=== PATIENT | male | born 1945 | race Caucasian/White ===

== ENCOUNTER 2019-09-12 16:07 | Inpatient (IN) ==
[2019-09-12] MEDS ORDERED: ZOFRAN IV ONE (17:40)
[2019-09-12] MEDS ORDERED: NS 1,000 ML IV ONE ×2 (17:40→17:41)
[2019-09-12] MEDS ORDERED: MORPHINE IV ONE (17:40)
[2019-09-12] MEDS ORDERED: ROCEPHIN 1 GM in NS 50 ML IV ONE (17:41)
[2019-09-12 18:18] LABS: BASO# 0.01 X1000 (0.0-0.2); BASO% 0.1 % (0.0-0.8); EOS# 0.04 X1000 (0.0-0.7); EOS% 0.6 % (0.0-10.0); HEMATOCRIT 42.1 % (42.0-52.0); HEMOGLOBIN 13.9 g/dL (14.0-18.0); LYMPH# 2.05 X1000 (1.2-3.4); LYMPH% 28.5 % (20.5-51.1); MCH 28.9 PG (27-31); MCV 87.5 FL (81-99); MONO# 0.74 X1000 (0.11-0.59); MONO% 10.3 % (1.7-9.3); MPV 13.3 FL (7.4-10.4); NEUT# 4.35 X1000 (1.4-6.5); NEUT% 60.5 % (42.2-75.2); PLT 136 X1000 (130-400); RBC 4.81 XMIL (4.7-6.1); WBC 7.19 X1000 (4.8-10.8)
[2019-09-12 18:27] LABS: INR 1.05; PROTIME 13.8 Seconds (11.0-16.0); PTT 24.8 Seconds (22.3-41.8)
--- NOTE | 2019-09-12 18:37 | PROVIDER DOCUMENTATION ---
This chart was entered by Mayra Pena Scribe, acting as scribe for Burak Mckay MD. HPI-General Adult - General Source: RN/MD, EMS - History of Present Illness -Gen Adult Nature of Presenting Problems: Patient is a 74 y/o male presenting to the ED today c/o AMS. Patient was brought over from [facility] at the request of his daughter who felt pat dannynt was having some altered mental status because he had been driving his motorized wheelchair into [place]. Patient has a history of a prior spinal cord injury and is wheelchair bound with cognitive impairment. When asked about pain, patient c/o discomfort in his right lower extremity and back. Patient provides limited information on exam. Denies all other signs/symptoms. Associated Symptoms: reports: other (altered mental status) Similar Symptoms Previously?: No Recently seen or treated by another doctor?: No <Burak Mckay - Last Filed: 09/12/19 18:37> <Dontae Wall - Last Filed: 09/12/19 23:01> - General Chief Complaint: General Adult Stated Complaint: general illness Time Seen by Provider: 09/12/19 17:26 Allergies/Adverse Reactions: Patient Allergies Allergy/AdvReac Type Severity Reaction Status Date / Time No Known Allergies Allergy Verified 09/12/19 17:38 Home Medications: Home Medication List Medication Instructions Recorded Confirmed Last Taken Type Aspirin 1 tab PO DAILY 09/12/19 09/12/19 Unknown History Atenolol 1 tab PO HS 09/12/19 09/12/19 Unknown History CefDINIR [Omnicef] 1 tab PO BID 09/12/19 09/12/19 Unknown History Meclizine HCl 1 tab PO HS 09/12/19 09/12/19 Unknown History Omeprazole 1 tab PO DAILY 09/12/19 09/12/19 Unknown History Ropinirole [Requip] 1 tab PO HS 09/12/19 09/12/19 Unknown History Simvastatin 1 tab PO HS 09/12/19 09/12/19 Unknown History Review of Systems - Adult - REVIEW OF SYSTEMS - ADULT ROS:: limited per condition Constitutional: denies: chills, fever Eyes: reports: no symptoms reported Ears, Nose, Mouth & Throat: reports: no symptoms reported Cardiovascular: denies: chest pain Respiratory: denies: cough, shortness of breath Gastrointestinal: denies: abdominal pain, diarrhea, nausea, vomiting Genitourinary: reports: no symptoms reported Musculoskeletal: reports: back pain, other (right lower extremity pain) Integumentary: reports: no symptoms reported Neurological: reports: no symptoms reported Psychiatric: reports: no symptoms reported Endocrine: reports: no symptoms reported Hematologic/Lymphatic: reports: no symptoms reported Allergic/Immunologic: reports: no symptoms reported All Other Systems: Reviewed and Negative <Burak Mckay - Last Filed: 09/12/19 18:37> Past History - Adult - PAST MEDICAL HISTORY-ADULT Review of Records: reports: Old Records Reviewed, Nursing Assessment Review, Medications Reviewed, Social history reviewed & non-contributory. <Burak Mckay - Last Filed: 09/12/19 18:37> Physical Exam-General - PHYSICAL EXAM-ADULT Initial Vital Signs Reviewed: Yes - CONSTITUTIONAL General Appearance: alert, no apparent distress, other (cognitive impairment at baseline) - EYES Eyes: PERRL/EOMI, pink conjunctivae - HEAD, EARS, NOSE, MOUTH & THROAT HENMT: normocephalic/atraumatic, moist mucous membranes - NECK Neck: full range of motion, normal inspection - RESPIRATORY Respiratory: lungs clear, normal breath sounds, no respiratory distress, no accessory muscle use, increased rate - CARDIOVASCULAR Cardiovascular: regular rate, rhythm - GASTROINTESTINAL (ABDOMEN) Abdominal Exam: non tender, soft - LYMPHATIC Lymphatic: no adenopathy - MUSCULOSKELETAL Back Exam: normal inspection Extremity: normal range of motion, normal gait, normal inspection, pedal edema (1+) - SKIN Integumentary: normal color, normal turgor, diaphoresis - NEUROLOGIC Neurologic: other (at baseline) - PSYCHIATRIC Psych/Mental Status: normal mood/affect, normal thought content, normal thought process <Burak Mckay - Last Filed: 09/12/19 18:37> Progress - PLAN OF CARE/RESULTS Progress/Plan/Lab Results: Vital Signs - 8 hr 09/12/19 17:21 Temperature 98.6 F Pulse Rate 61 Respiratory Rate 24 Blood Pressure 201/71 O2 Sat by Pulse Oximetry 96 Result Diagrams: 09/12/19 17:56 - REASSESSMENT Reassessment #1 Time Reassessed: 18:36 Status: improving (Given IVF, small dose of morphine/zofran given as patient seems to be in pain.) - EKG 1 Time of EKG reading by physician:: 18:37 EKG Read and Signed by:: Burak Mckay EKG Interpretation (*Must complete 3 of following elements*): Abnormal Rate: 62 Rhythm: Junctional rhythm Rio: normal QRS: other (early transition) ST Wave: non-specific ST changes - CHANGE OF SHIFT REPORT (ED Provider) 1 Report Given and Care Transferred to:: [facility] Time of Transfer: 19:00 Items Pending: Labs, XRAY Results <Burak Mckay - Last Filed: 09/12/19 18:37> - PLAN OF CARE/RESULTS Progress/Plan/Lab Results: Vital Signs - 8 hr 09/12/19 17:21 09/12/19 19:15 09/12/19 20:01 Temperature 98.6 F Pulse Rate 61 69 75 Respiratory Rate 24 20 20 Blood Pressure 201/71 192/72 193/64 O2 Sat by Pulse Oximetry 96 97 96 09/12/19 21:15 Temperature Pulse Rate 76 Respiratory Rate 18 Blood Pressure 208/115 O2 Sat by Pulse Oximetry 94 L 09/12/19 18:27 Influenza Screen - Final Nasopharyngeal Laboratory Results - last 24 hr 09/12/19 09/12/19 09/12/19 17:56 17:56 17:56 WBC 7.19 RBC 4.81 Hgb 13.9 L Hct 42.1 MCV 87.5 MCH 28.9 MCHC 33.0 RDW Std Deviation 14.0 Plt Count 136 MPV 13.3 H Immature Gran % (Auto) 0.0 Neut % (Auto) 60.5 Lymph % (Auto) 28.5 Morrison % (Auto) 10.3 H Eos % (Auto) 0.6 Baso % (Auto) 0.1 Immature Gran # (Auto) 0.00 Neut # (Auto) 4.35 Lymph # (Auto) 2.05 Morrison # (Auto) 0.74 H Eos # (Auto) 0.04 Baso # (Auto) 0.01 PT 13.8 INR 1.05 PTT (Actin FS) 24.8 Sodium 148 H Potassium 3.5 Chloride 107 Carbon Dioxide 24 L Anion Gap 17 BUN 16 Creatinine 0.6 L Estimated GFR/1.73 m2 > 60 BUN/Creatinine Ratio 27 Glucose 109 H Calculated Osmolality 296 Calcium 8.9 Magnesium 1.7 Total Bilirubin 0.74 AST 23 ALT 23 Alkaline Phosphatase 84 Creatine Kinase 165 Troponin T High Sens Jko-H-Fhnznakdxib Pept Total Protein 6.4 Albumin 4.1 Globulin 2.3 Albumin/Globulin Ratio 1.8 Plasma Lactate Urine Source Urine Color Urine Turbidity Urine pH Ur Specific [place] Urine Protein Ur Glucose (Stick) Ur Ketones (Stick) Urine Blood Urine Nitrite Urine Bilirubin Urobilinogen Dipstick Urine Leukocytes Urine WBC (Auto) Urine RBC (Auto) U Epithel Cells (Auto) Urine Bacteria (Auto) Urine Crystals Small Round Cells Urine Casts Urine Yeast-like Cells 09/12/19 09/12/19 09/12/19 17:56 17:56 17:56 WBC RBC Hgb Hct MCV MCH MCHC RDW Std Deviation Plt Count MPV Immature Gran % (Auto) Neut % (Auto) Lymph % (Auto) Morrison % (Auto) Eos % (Auto) Baso % (Auto) Immature Gran # (Auto) Neut # (Auto) Lymph # (Auto) Morrison # (Auto) Eos # (Auto) Baso # (Auto) PT INR PTT (Actin FS) Sodium Potassium Chloride Carbon Dioxide Anion Gap BUN Creatinine Estimated GFR/1.73 m2 BUN/Creatinine Ratio Glucose Calculated Osmolality Calcium Magnesium Total Bilirubin AST ALT Alkaline Phosphatase Creatine Kinase Troponin T High Sens 32 H Anl-A-Gxwmmmruovl Pept 1137 H Total Protein Albumin Globulin Albumin/Globulin Ratio Plasma Lactate 1.0 Urine Source Urine Color Urine Turbidity Urine pH Ur Specific [place] Urine Protein Ur Glucose (Stick) Ur Ketones (Stick) Urine Blood Urine Nitrite Urine Bilirubin Urobilinogen Dipstick Urine Leukocytes Urine WBC (Auto) Urine RBC (Auto) U Epithel Cells (Auto) Urine Bacteria (Auto) Urine Crystals Small Round Cells Urine Casts Urine Yeast-like Cells 09/12/19 09/12/19 19:20 21:45 WBC RBC Hgb Hct MCV MCH MCHC RDW Std Deviation Plt Count MPV Immature Gran % (Auto) Neut % (Auto) Lymph % (Auto) Morrison % (Auto) Eos % (Auto) Baso % (Auto) Immature Gran # (Auto) Neut # (Auto) Lymph # (Auto) Morrison # (Auto) Eos # (Auto) Baso # (Auto) PT INR PTT (Actin FS) Sodium Potassium Chloride Carbon Dioxide Anion Gap BUN Creatinine Estimated GFR/1.73 m2 BUN/Creatinine Ratio Glucose Calculated Osmolality Calcium Magnesium Total Bilirubin AST ALT Alkaline Phosphatase Creatine Kinase Troponin T High Sens 35 H Wob-Y-Ggxmumfzzwt Pept Total Protein Albumin Globulin Albumin/Globulin Ratio Plasma Lactate Urine Source CATH Urine Color YELLOW Urine Turbidity HAZY Urine pH 6.5 Ur Specific [place] 1.034 Urine Protein 300 A Ur Glucose (Stick) NEGATIVE Ur Ketones (Stick) 40 A Urine Blood LARGE A Urine Nitrite NEGATIVE Urine Bilirubin NEGATIVE Urobilinogen Dipstick 2 A Urine Leukocytes NEGATIVE Urine WBC (Auto) 10-20 A Urine RBC (Auto) TNTC A U Epithel Cells (Auto) <10 Urine Bacteria (Auto) NEGATIVE Urine Crystals NONE SEEN Small Round Cells Not Reportable Urine Casts Not Reportable Urine Yeast-like Cells Not Reportable Orders Category Date Time Status Cardiac Monitoring DIRECTED Care 09/12/19 17:39 Active IV Insertion ORDERED Care 09/12/19 17:39 Completed Nursing- Obtain EKG once Care 09/12/19 17:41 Active CHEST-1 VIEW [RAD] Stat Exams 09/12/19 17:[address] HEAD W/O CONTRAST [CT] Stat Exams 09/12/19 21:[address] RENAL STONE SEARCH [CT] Stat Exams 09/12/19 17:40 Completed BLOOD CULTURE [BLDCUL] Stat Lab 09/12/19 17:56 Results CBC WITH DIFF [HEME] Stat Lab 09/12/19 17:56 Completed CK PROFILE [SP CHEM] Stat Lab 09/12/19 17:56 Completed COMPREHENSIVE METABOLIC PANEL [CHEM] Stat Lab 09/12/19 17:56 Completed INFLUENZA SCREEN A/B Stat Lab 09/12/19 18:27 Completed LACTATE, PLASMA [CHEM] Lab 09/12/19 20:45 Uncollected LACTATE, PLASMA [CHEM] Lab 09/12/19 23:45 Uncollected LACTATE, PLASMA [CHEM] Q3H Lab 09/12/19 17:56 Completed MAGNESIUM [CHEM] Stat Lab 09/12/19 17:56 Completed PRO B-NATRIURETIC PEPTIDE Stat Lab 09/12/19 17:56 Completed PROTIME WITH INR [COAG] Stat Lab 09/12/19 17:56 Completed PTT [COAG] Stat Lab 09/12/19 17:56 Completed TROPONIN T HIGH SENSITIVITY Stat Lab 09/12/19 17:56 Completed TROPONIN T HIGH SENSITIVITY Stat Lab 09/12/19 21:45 Completed URINALYSIS W/POSS RFLX CULT [URINALYSIS] Stat Lab 09/12/19 19:20 Completed URINE CULTURE [RM] Routine Lab 09/12/19 19:20 Received URINE MANUAL MICROSCOPIC [URINALYSIS] Stat Lab 09/12/19 19:20 Completed 0.9% Sodium Chloride Inj [Ns] 1,000 ml Med 09/12/19 17:40 Discontinued IV 999 mls/hr 0.9% Sodium Chloride Inj [Ns] 1,000 ml Med 09/12/19 17:41 Discontinued IV 999 mls/hr CefTRIAXONE [Rocephin] 1 gm Med 09/12/19 17:41 Discontinued 0.9% Sodium Chloride Inj [Ns] 50 ml IV NOW Furosemide [Lasix] Med 09/12/19 21:15 Discontinued 20 mg IV NOW ONE Morphine Med 09/12/19 17:40 Discontinued 2 mg IV NOW ONE Ondansetron [Zofran] Med 09/12/19 17:40 Discontinued 4 mg IV NOW ONE Oxygen Device Stat Oth 09/12/19 17:39 Active EKG [EKG] Stat Ther 09/12/19 17:41 Ordered Result Diagrams: 09/12/19 17:56 09/12/19 17:56 - CONSULTS/PCP/HOSPITALIST Notification #1 *Consult/PCP/Hospitalist*: Dr Marcus Time Discussed: 22:57 Consult Disposition: Will see in ED, Admit <Dontae Wall - Last Filed: 09/12/19 23:01> Departure - Departure Certified Medical Emergency: Emergent - Critical Care Note This patient required my direct & personal management of CC.: No <Burak Mckay - Last Filed: 09/12/19 18:37> - Departure Date of Disposition Decision: 09/12/19 Time of Disposition Decision: 22:57 - Critical Care Note This patient required my direct & personal management of CC.: No <Dontae Wall - Last Filed: 09/12/19 23:01> - Departure DIAGNOSIS: Hypoxia, CHF (congestive heart failure), Kidney stone, Hematuria Disposition: ADMITTED INPATIENT 09 Condition: Fair Attestation - Physician/ RAE Attestation Patient care was provided by Advanced Practice Provider:: No The physician spent face to face time with patient:: Yes Advanced Practice Provider documentation review:: Supervising physician onsite and consulted in the evaluation and care of this patient. The physician did have a face to face encounter with the patient. <Burak Mckay - Last Filed: 09/12/19 18:37> This chart was documented by the indicated scribe, (Mayra Pena, [place]) and accurately reflects the services I performed and decisions made by me, Burak Mckay MD, as attested by the provider's signature.
[2019-09-12 18:41] LABS: AGAP 17; ALB/GLOB RATIO 1.8; ALBUMIN 4.1 g/dL (3.5-5.0); ALKALINE PHOSPHATASE 84 U/L (32-122); BUN 16 mg/dL (8-22); CALCIUM 8.9 mg/dL (8.8-10.2); CHLORIDE 107 mmol/L (98-107); CK PROFILE 165 U/L (24-204); COSMO 296; CREATININE 0.6 mg/dL (0.7-1.2); ESTIMATED GFR > 60; GLUCOSE 109 mg/dL (70-104); GOT 23 U/L (10-34); GPT 23 U/L (10-44); MAGNESIUM 1.7 mg/dL (1.5-2.7); POTASSIUM 3.5 mmol/L (3.5-5.1); SODIUM 148 mmol/L (136-145); TCO2 24 mmol/L (25-35); TOTAL BILIRUBIN 0.74 mg/dL (0.20-1.00); TOTAL PROTEIN 6.4 g/dL (6.3-8.3)
--- NOTE | 2019-09-12 18:50 | Diag Imaging Result Doc PS360 ---
EXAM: CT RENAL STONE SEARCH INDICATION: back pain, fever TECHNIQUE: This exam was performed using automated exposure control, adjustment of mA or kV according to patient size, and/or use of iterative reconstruction technique. COMPARISON: None. FINDINGS: The gallbladder is not identified. There has probably been a prior cholecystectomy. The liver, spleen, pancreas, and adrenal glands are unremarkable. There are multiple renal cysts bilaterally, more prominent on the right. There are several bulky nonobstructing intrarenal stones on the right. One stone at the lower pole the right kidney measures up to 9.8 mm axially. There is mild prominence of the renal collecting system at the lower pole on the right but this also may represent a parapelvic cysts. There is no dilatation of the upper collecting system on the right. There is no ureteral dilatation and no ureteral stones are identified. However, there is a 3.6 mm stone that appears to be in the lumen of the urinary bladder on the right near the right UVJ. It is unknown if this recently passed. Please correlate clinically. There appears to be a tiny anterior renal diverticulum on the right. Urinary bladder is unremarkable, otherwise. The appendix is normal. No bowel wall thickening or bowel obstruction is identified. The remainder of the GI tract is grossly unremarkable. No focal inflammatory changes, free abdominal gas, or free fluid is identified. There is no evidence of acute osseous abnormality. IMPRESSION: 1.Multiple large renal cysts. 2.Bulky nonobstructing intrarenal stones on the right and possible mild dilation of the lower right renal collecting system versus parapelvic cysts. No ureteral dilatation or ureteral stones are identified. 3.Tiny stone seen in the urinary bladder lumen near the right UVJ. It is unknown how recently this passed. 4.Other incidental/nonacute findings detailed above. Electronically signed by Fercho Sal 09/12/2019 6:47 PM
--- NOTE | 2019-09-12 18:55 | Diag Imaging Result Doc PS360 ---
EXAM: CHEST-1 VIEW INDICATION: fever TECHNIQUE: One view COMPARISON: None. FINDINGS: The lungs are grossly clear. There is no discrete pleural fluid collection or pneumothorax. The cardiomediastinal silhouette and central vasculature are grossly unremarkable. IMPRESSION: No evidence of acute pathology by plain radiograph. Electronically signed by Fercho Sal 09/12/2019 6:53 PM
[2019-09-12 19:31] LABS: URINE SOURCE CATH
[2019-09-12 19:33] LABS: BILIRUBIN URINE NEGATIVE (NEGATIVE); BLOOD URINE LARGE (NEGATIVE); COLOR YELLOW; GLUCOSE URINE NEGATIVE (NEGATIVE); KETONE URINE 40 mg/dL (NEGATIVE); LEUKOCYTES URINE NEGATIVE (NEGATIVE); NITRITE URINE NEGATIVE (NEGATIVE); PH URINE 6.5; PROTEIN URINE 300 mg/dL (NEGATIVE); SP GRAVITY URINE 1.034; TURBIDITY URINE HAZY (CLEAR); UROBILINOGEN URINE 2 mg/dL (NORMAL)
[2019-09-12 19:36] LABS: UR EPITHELIAL CELLS <10 /HPF (<10); URINE BACTERIA NEGATIVE /HPF; URINE RBC TNTC /HPF (<10)
[2019-09-12 19:53] LABS: URINE CRYSTALS NONE SEEN
[2019-09-12] MEDS ORDERED: LASIX IV ONE (21:15)
[2019-09-13] MEDS ORDERED: D5 1/2 NS 1,000 ML IV ONE (02:14)
[2019-09-13] MEDS ORDERED: ZOFRAN IV PRN (02:20)
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
[2019-09-13] MEDS: TYLENOL PO PRN (05:53)
--- NOTE | 2019-09-13 07:20 | Diag Imaging Result Doc PS360 ---
EXAM: CT HEAD W/O CONTRAST INDICATION: altered mental status TECHNIQUE: This exam was performed using automated exposure control, adjustment of mA or kV according to patient size, and/or use of iterative reconstruction technique. COMPARISON: None. FINDINGS: There is patchy low attenuation in the periventricular and subcortical white matter suggesting moderate microangiopathy. There is no definite acute infarct given the limited sensitivity of CT versus MRI. There is no discrete intracranial mass, mass effect, or intracranial hemorrhage. The surrounding soft tissues and bony structures are essentially unremarkable. IMPRESSION: Chronic appearing white matter changes but no definite acute intracranial pathology. Electronically signed by Fercho Sal 09/13/2019 7:17 AM
--- NOTE | 2019-09-13 07:30 | Diag Imaging Result Doc PS360 ---
EXAM: CT ANGIOGRM PULMONARY ARTERIES INDICATION: chest pain TECHNIQUE: This exam was performed using automated exposure control, adjustment of mA or kV according to patient size, and/or use of iterative reconstruction technique. Thin section axial images and 3-D MIPS were obtained. COMPARISON: None. FINDINGS: There is excessive respiratory motion artifact, especially at the mid and lower lung zones, which may decrease sensitivity for detecting small pulmonary emboli. However, there is no discrete filling defect to indicate pulmonary embolism as imaged. There is mild to moderate aortic atherosclerotic disease. There is subaneurysmal ectasia of the ascending aortic arch measuring up to 3.8 cm in diameter. There is no evidence of thoracic aortic dissection. There is no cardiomegaly. There is no evidence of significant mediastinal or hilar lymphadenopathy. There is at least moderate pulmonary emphysema with an apical predominance. There is mild subsegmental atelectasis at the lung bases. There is no pleural fluid collection or pneumothorax. Limited views of the upper abdomen reveal multiple bilateral renal cysts. There are a few old healed rib fractures on the left. There is no evidence of acute osseous abnormality. IMPRESSION: 1.Pulmonary emphysema and mild subsegmental atelectasis at the lung bases. 2.No evidence of pulmonary embolism. 3.Subaneurysmal ectasia of the ascending aortic arch. Electronically signed by Fercho Sal 09/13/2019 7:27 AM
--- NOTE | 2019-09-13 07:43 | EKG Report ---
Test Performed on : 09/12/2019 6:36:38 PM Test Reason : fever Blood Pressure : / mmHG Vent. Rate : 062 BPM Atrial Rate : 069 BPM P-R Int : 000 ms QRS Dur : 088 ms QT Int : 470 ms P-R-T Axes : 000 033 037 degrees QTc Int : 477 ms Junctional rhythm. Nonspecific ST and T wave abnormality Prolonged QT Abnormal ECG No previous ECGs available Unconfirmed Result
[2019-09-13] MEDS: PRILOSEC PO SCH (11:23)
--- NOTE | 2019-09-13 12:54 | CONSULTATION ---
DATE OF CONSULTATION: 09/13/2019 CHIEF COMPLAINT: Altered mental status with bilateral urolithiasis. HISTORY OF PRESENT ILLNESS: Mr. Zimmerman is a 74-year-old who presents in consultation regarding bilateral renal cysts with bilateral kidney stones. The patient was brought into the emergency room due to altered mental status from his facility. 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 He currently lives at [facility], where he has been acting abnormally recently, trying to fall out of his wheelchair and was having difficulty responding to questions. He was brought into the hospital for evaluation. A CT scan on the abdomen was performed which showed bilateral renal cysts with large stone burden within the right kidney with a larger renal cyst present. The patient also seems to have passed a recent right ureteral stone as it was present within the bladder with minimal hydronephrosis. The patient is relatively nonverbal, but answers yes and no questions. He describes bilateral flank pain. Denies any suprapubic pain, dysuria, hematuria, urgency, or frequency. He denies seeing a urologist previously. PAST MEDICAL HISTORY: 1. Brown-Sequard syndrome with paraplegia. 2. Gastroesophageal reflux disease. 3. Restless legs disease. 4. Dyslipidemia. 5. History of deep vein thrombosis. PAST SURGICAL HISTORY: Denies. ALLERGIES: No known drug allergies. MEDICATIONS: 1. Aspirin 81 mg. 2. Atenolol 25 mg daily. 3. Meclizine 25 mg daily. 4. Prilosec 20 mg daily. 5. Omnicef 300 mg b.i.d. 6. Simvastatin 20 mg at bedtime. FAMILY HISTORY: Denies family history of malignancy. SOCIAL HISTORY: Former smoker who quit about 25 years ago. Denies alcohol or illicit drug use. REVIEW OF SYSTEMS: Difficult to obtain due to the patient's underlying condition. PHYSICAL EXAMINATION: Vital Signs: Temperature 98.6, heart rate 52, blood pressure 200/111, oxygen saturation 94% on room air. General: No acute distress. Resting comfortably in bed. Alert and oriented x3. Respiratory: Good respiratory effort without audible wheezing or rales. HEENT: Normocephalic, atraumatic. Pupils equal, round, reactive to light. Neck: Trachea midline, with no palpable masses Cardiovascular: Regular rate and rhythm. Abdomen: Soft, nontender, nondistended. No palpable masses. : No suprapubic tenderness. No CVA tenderness. A condom catheter in place draining clear yellow urine. Normal phallus with orthotopic meatus. Bilateral testicles palpated without asymmetry. Musculoskeletal: Decreased movement of lower extremities. Minimal upper extremity movement. Skin: No obvious skin lesions or rashes. LABORATORY DATA: White blood cell count 7.2, hemoglobin 13.9, hematocrit 42.1, platelets 136,000. Sodium 148, potassium 3.5, chloride 107, bicarb 24, BUN 16, creatinine 0.6, glucose 109. Urinalysis shows 300 of protein, large amount of blood with ahm-smueacdn-me-count RBCs with negative bacteria. IMAGING: CT abdomen and pelvis images reviewed, which shows large bilateral renal cysts with largest cyst burden in the right kidney. There are multiple stones seen within the right kidney itself. There is noted to be hydronephrosis with a calcification seen within the bladder itself, likely correlating to possible recently passed stone. This measures approximately 3.6 mm and appears to be at the base of the bladder inside the bladder itself. ASSESSMENT AND PLAN: Mr. Zimmerman is a 74-year-old who presents in consultation regarding bilateral renal cysts and bilateral stones. The patient has a large amount of cyst in the right kidney as well as multiple stones within the kidney itself. There does appear to be a recently passed stone present in the bladder itself. The patient is currently complaining of bilateral back pain, uncertain of the acuteness of this. He says it is new onset. However, per records it seems like he has had a long history of back pain. The patient's kidney function was normal. Patient did have a large amount of blood in his urine on urinalysis. No evidence of tachycardia or signs of infection. We will continue to monitor clinically. We will re-evaluate. If he continues to have pain, may have to consider cystoscopy and treatment of stone within the bladder. However, I think the chance of passing his stone is very high due to this location, almost in the bladder itself. We will continue to monitor from a urologic standpoint. Please call with questions or concerns. cc: MD JAYE Baltazar
--- NOTE | 2019-09-13 19:08 | ECHO REPORT ---
ORDER DATE: 09/13/2019 MEASUREMENTS: Septal thickness 1.1, left ventricular internal diameter in diastole 4.7, posterior wall thickness 1.1, left ventricular internal diameter in systole 3.0. SUMMARY: 1. Technically difficult study due to limited acoustic window quality. 2. Very mild sclerotic changes of aortic valve demonstrated with adequate aortic valve opening evident. The peak gradient across the aortic valve is 12 mmHg. Mitral and tricuspid valves are without evidence of structural abnormality, while pulmonic valve is not well demonstrated. There is trace mitral regurgitation and trace tricuspid regurgitation. The aortic root is normal in size. 3. Normal left ventricular dimensions suggested. The estimated left ventricular ejection fraction appears to be at least 65%. No regional wall motion abnormality is evident. Doppler suggests grade 1 left ventricular diastolic dysfunction. The left atrium, right atrium and right ventricle are normal in size with grossly preserved right ventricular systolic function. 4. No pericardial effusion. 5. Appearance of the inferior vena cava suggests normal central venous pressure. cc: MD Ulises Connolly MD
[2019-09-13] MEDS: REQUIP PO SCH (20:21)
[2019-09-13] MEDS: TENORMIN PO SCH (20:22)
[2019-09-13] MEDS: ANTIVERT PO SCH (20:22)
[2019-09-13] MEDS: MORPHINE IV PRN (21:04)
[2019-09-13] MEDS: ZOCOR PO SCH (21:04)
[2019-09-14] MEDS: MORPHINE IV PRN ×5 (01:43→20:39)
[2019-09-14] MEDS: TYLENOL PO PRN (02:25)
[2019-09-14] MEDS: PRILOSEC PO SCH (06:27)
--- NOTE | 2019-09-14 07:35 | Diag Imaging Result Doc PS360 ---
CHEST-PORTABLE - 09/14/2019 INDICATION: dyspnea COMPARISON: 09/12/2019 FINDINGS: Lung volumes are lower. There is hazy interstitial infiltrate diffusely and bilaterally suggesting mild pulmonary edema. Heart size is borderline enlarged. IMPRESSION: Suspicion for interstitial pulmonary edema. Correlate clinically. Electronically signed by Edward Samaniego 09/14/2019 7:32 AM
[2019-09-14] MEDS ORDERED: LASIX IV ONE (08:31)
[2019-09-14 08:48] LABS: BASO# 0.01 X1000 (0.0-0.2); BASO% 0.1 % (0.0-0.8); EOS# 0.16 X1000 (0.0-0.7); EOS% 2.2 % (0.0-10.0); HEMATOCRIT 41.4 % (42.0-52.0); HEMOGLOBIN 13.3 g/dL (14.0-18.0); IMM GRAN# 0.02 X1000 (0.0-0.04); IMM GRAN% 0.3 % (0.0-0.5); LYMPH% 17.5 % (20.5-51.1); MCH 28.7 PG (27-31); MCHC 32.1 g/dL (33-37); MCV 89.2 FL (81-99); MONO# 0.87 X1000 (0.11-0.59); MONO% 11.7 % (1.7-9.3); NEUT# 5.07 X1000 (1.4-6.5); NEUT% 68.2 % (42.2-75.2); PLT 132 X1000 (130-400); RBC 4.64 XMIL (4.7-6.1); RDW 14.2 % (11.5-14.5); WBC 7.43 X1000 (4.8-10.8)
[2019-09-14 08:54] LABS: AGAP 12; ALB/GLOB RATIO 1.3; ALBUMIN 3.4 g/dL (3.5-5.0); ALKALINE PHOSPHATASE 69 U/L (32-122); BUN 11 mg/dL (8-22); CALCIUM 8.4 mg/dL (8.8-10.2); CHLORIDE 103 mmol/L (98-107); COSMO 285; CREATININE 0.6 mg/dL (0.7-1.2); ESTIMATED GFR > 60; GLUCOSE 108 mg/dL (70-104); GOT 20 U/L (10-34); GPT 18 U/L (10-44); POTASSIUM 2.7 mmol/L (3.5-5.1); SODIUM 143 mmol/L (136-145); TCO2 28 mmol/L (25-35); TOTAL BILIRUBIN 0.57 mg/dL (0.20-1.00); TOTAL PROTEIN 6.1 g/dL (6.3-8.3)
--- NOTE | 2019-09-14 09:52 | PROGRESS NOTE ---
DATE: 09/14/2019 SUBJECTIVE: The patient is nonverbal. No acute issues noted as per nursing staff overnight. OBJECTIVE: Vital Signs: Temperature 97.6 degrees, heart rate 58, respiratory rate 22, blood pressure 152/81, O2 saturation 95% on room air. General Examination: This is a 74-year-old male, lying in bed in no acute distress. Cardiovascular exam: S1, S2 heard. No murmurs, gallops, or rubs. Regular rate and rhythm. Respiratory exam: Clear bilaterally to auscultation. There are minimal crackles noted in both pulmonary bases. Patient not using any accessory muscles or having work of breathing. Abdomen: Soft, nontender to palpation. Bowel sounds present. No organomegaly. Extremities: No clubbing, cyanosis or edema. Peripheral pulses present in both legs. Neurological exam: The patient is nonverbal. The patient is paraplegic and does not follow any commands. LABORATORY DATA: Pending at the time of dictation. IMAGING STUDIES: 1. X-ray from this morning showed suspicion for interstitial pulmonary edema 2. Echocardiogram and Doppler showed normal left ventricular systolic function with ejection fraction of 65%. No pericardial effusion. No valvular abnormality. ASSESSMENT AND PLAN: 1. Acute hypoxic respiratory failure. Patient is nonverbal, not able to provide any more information. The x-ray from today shows some pulmonary edema. We will provide 1 dose of Lasix. The echocardiogram did not show any systolic function, but there could be a diastolic function. We already ruled out pulmonary embolism. He is on diuretics, so will basically restart those today. He is not requiring any oxygen supplementation. 2. Nephrolithiasis. The patient has been evaluated by Urology. They are not planning to do any procedures while he is here. 3. Hypernatremia. Labs from today are still pending. We will continue to monitor. 4. Disposition: At this point, the patient is going to be evaluated by physical therapy. We will see if this patient needs to go to a rehabilitation facility. As per admission note, the patient has been declining slowly. We will continue to monitor. cc: Servando Garcia MD
[2019-09-14 11:45] LABS: LYMPHS 18 % (21-51); MONO 4 % (1-9); SEGS 78 % (42-75)
[2019-09-14] MEDS ORDERED: POTASSIUM CHLORIDE 60 MEQ in NS 500 ML IV ONE (14:00)
--- NOTE | 2019-09-14 19:35 | PROGRESS NOTE ---
DATE: 09/14/2019 SUBJECTIVE: No acute events overnight. The patient was admitted to the floor and overall is doing well. He denies significant pain this morning. He previously was having a large amount of back pain, which seems to be resolved. He denies any dysuria or hematuria. OBJECTIVE: Vital signs show temperature of 98.6, heart rate 66, blood pressure 176/71, oxygenation 95% on room. General: In no acute distress, resting comfortably in bed, alert and oriented x3. Respiratory: Good respiratory effort without audible wheezing or rales. Abdomen: Soft, nontender, nondistended. : No suprapubic tenderness. No CVA tenderness. Condom catheter in place draining clear yellow urine. LABS: White blood cell count 7.4, hemoglobin 13.3, hematocrit 41.8, platelets 132,000. Sodium 143, potassium 2.7, chloride 103, bicarb 28, BUN 11, creatinine 0.8, glucose 108. ASSESSMENT AND PLAN: Mr. Zimmerman is a 74-year-old who presents in consultation regarding bilateral renal cysts and bilateral kidney stones. The patient had a stone present, likely in the bladder. The patient was able to pass this all the way down his ureter already. The patient currently is not having any pain. Renal function seems to be stable. Urine is clear yellow. I think the patient overall is doing well. He had some pain yesterday, which is resolved now. I think he passed a stone and likely is not dealing with this pain anymore. From a urologic standpoint, the patient overall seems to be doing well. The patient has large renal cysts bilaterally, which could be leading to pain, long-term, as well as developing kidney stones. The patient has no mobility, which does not help with his kidney stone formation. The right kidney has a large stone burden present. We could discuss treatment of this in the outpatient setting with extracorporeal shock lithotripsy versus ureteroscopy and stone removal. We will continue monitor from a urologic standpoint. Please call with any questions or concerns. cc: Jono Hilliard MD [facility]
[2019-09-14] MEDS: ZOCOR PO SCH (20:39)
[2019-09-14] MEDS: ANTIVERT PO SCH (20:39)
[2019-09-14] MEDS: TENORMIN PO SCH (20:39)
[2019-09-14] MEDS: REQUIP PO SCH (20:39)
[2019-09-15] MEDS: PRILOSEC PO SCH (06:08)
[2019-09-15] MEDS: MORPHINE IV PRN ×2 (06:08→13:14)
[2019-09-15 10:29] LABS: BASO# 0.01 X1000 (0.0-0.2); BASO% 0.1 % (0.0-0.8); EOS# 0.11 X1000 (0.0-0.7); EOS% 1.1 % (0.0-10.0); HEMATOCRIT 45.4 % (42.0-52.0); HEMOGLOBIN 14.5 g/dL (14.0-18.0); IMM GRAN# 0.02 X1000 (0.0-0.04); IMM GRAN% 0.2 % (0.0-0.5); LYMPH# 1.72 X1000 (1.2-3.4); LYMPH% 17.8 % (20.5-51.1); MCH 28.3 PG (27-31); MCHC 31.9 g/dL (33-37); MCV 88.5 FL (81-99); MONO# 1.33 X1000 (0.11-0.59); MONO% 13.8 % (1.7-9.3); MPV 13.2 FL (7.4-10.4); NEUT# 6.45 X1000 (1.4-6.5); PLT 155 X1000 (130-400); RBC 5.13 XMIL (4.7-6.1); RDW 14.2 % (11.5-14.5); WBC 9.64 X1000 (4.8-10.8)
[2019-09-15 11:27] LABS: AGAP 14; ALBUMIN 3.9 g/dL (3.5-5.0); BUN 19 mg/dL (8-22); CHLORIDE 100 mmol/L (98-107); COSMO 286; CREATININE 0.6 mg/dL (0.7-1.2); ESTIMATED GFR > 60; GLUCOSE 104 mg/dL (70-104); PHOSPHORUS 3.4 mg/dL (2.7-4.5); POTASSIUM 3.5 mmol/L (3.5-5.1); SODIUM 142 mmol/L (136-145); TCO2 28 mmol/L (25-35)
--- NOTE | 2019-09-15 15:00 | PROGRESS NOTE ---
DATE: 09/15/2019 SUBJECTIVE: Patient nonverbal. No acute issues noted as per nursing staff overnight. OBJECTIVE: Vital Signs: Temperature 97.5 degrees, heart rate 54, respiratory rate 22, blood pressure 131/45, O2 saturation 96% on 2 L nasal cannula. General: This is a 74-year-old male, lying in bed, in no acute distress. Cardiovascular: S1, S2 heard. No murmurs, gallops, or rubs. Regular rate and rhythm. Respiratory: Clear bilaterally to auscultation. Number of crackles in both pulmonary bases. Definitely better in comparing with yesterday. Patient is not using any accessory muscles or having work of breathing. Abdomen: Soft, nontender to palpation. Bowel sounds present. No organomegaly. Extremities: No clubbing, cyanosis, or edema. Peripheral pulses present in both legs. Neurological: Patient is nonverbal. The patient is paraplegic and does not follow commands. LABORATORY DATA: No labs from today. Still pending. ASSESSMENT AND PLAN: 1. Acute hypoxemic respiratory failure. As we mentioned before, patient is nonverbal and not able to provide any information. X-rays on presentation shows pulmonary edema so he got 1 dose of Lasix. Echocardiogram did not show any signs of systolic dysfunction. PE has been already ruled out. The patient is on common diuretics so we will continue with those. We will continue to monitor. 2. Nephrolithiasis. Patient has some kidney stone that according to Dr. Hilliard needs to be taken care but as an outpatient with lithotripsy. Help appreciated. 3. Hypokalemia. Labs are still pending. We will replenish potassium if needed. 4. Disposition. At this point, we will continue to monitor this patient closely. We will see what physical therapy has to say. We may need to send him to rehab. cc: Servando Garcia MD [facility]
[2019-09-15] MEDS ORDERED: CALMOSEPTINE OINTMENT TOP PRN (18:05)
[2019-09-15] MEDS: TENORMIN PO SCH (21:00)
[2019-09-15] MEDS: ANTIVERT PO SCH (21:28)
[2019-09-15] MEDS: REQUIP PO SCH (21:28)
[2019-09-15] MEDS: ZOCOR PO SCH (21:28)
[2019-09-16] MEDS: PRILOSEC PO SCH (06:10)
[2019-09-16 08:25] LABS: BASO# 0.02 X1000 (0.0-0.2); BASO% 0.2 % (0.0-0.8); EOS# 0.15 X1000 (0.0-0.7); EOS% 1.7 % (0.0-10.0); HEMATOCRIT 42.3 % (42.0-52.0); HEMOGLOBIN 13.5 g/dL (14.0-18.0); IMM GRAN# 0.02 X1000 (0.0-0.04); IMM GRAN% 0.2 % (0.0-0.5); LYMPH# 1.34 X1000 (1.2-3.4); LYMPH% 15.5 % (20.5-51.1); MCH 28.5 PG (27-31); MCHC 31.9 g/dL (33-37); MCV 89.4 FL (81-99); MONO# 1.02 X1000 (0.11-0.59); MONO% 11.8 % (1.7-9.3); MPV 13.3 FL (7.4-10.4); NEUT# 6.09 X1000 (1.4-6.5); NEUT% 70.6 % (42.2-75.2); PLT 141 X1000 (130-400); RBC 4.73 XMIL (4.7-6.1); RDW 13.9 % (11.5-14.5); WBC 8.64 X1000 (4.8-10.8)
--- NOTE | 2019-09-16 09:06 | PROGRESS NOTE ---
DATE: 09/16/2019 SUBJECTIVE: Patient remained nonverbal. No acute issues noted as per nursing staff overnight. OBJECTIVE: Vital Signs: Temperature 98.5 degrees, heart rate 52, respiratory rate 18, blood pressure 124/57, O2 saturation 99% on 2 L nasal cannula. General Examination: This is a chronically ill-appearing, 74-year-old, male, lying in bed, in no acute distress. Cardiovascular Examination: S1 and S2 heard. No murmurs, gallops, or rubs. Regular rate and rhythm. Respiratory Examination: Clear bilaterally to auscultation with some crackles noted to both pulmonary bases but definitely better in comparing with yesterday. Patient is not using any accessory muscles or having work of breathing. Abdomen: Soft, nontender to palpation. Bowel sounds present. No organomegaly. Extremities: No clubbing, cyanosis, or edema. Peripheral pulses present in both legs. Neurological Examination: The patient is nonverbal. He is paraplegic. Apparently, he does not follow commands. Laboratory Data: Pending at the time of my dictation. ASSESSMENT AND PLAN: 1. Acute hypoxemic respiratory failure. The patient apparently has pulmonary edema at admission so that is why he was provided Lasix yesterday. He was provided one dose of intravenous Lasix and then he was continued with Lasix by mouth. Potassium from yesterday is okay. He is requiring still a little bit of oxygen, 2 L by nasal cannula. We will continue to monitor. Echocardiogram did not show any signs of systolic dysfunction and pulmonary embolism has been ruled out. At this point, we will continue with home diuretics. We will continue to monitor. 2. Nephrolithiasis. The patient will need to be seen as an outpatient for possible lithotripsy. 3. Hypokalemia, resolved from yesterday. We will continue to monitor. 4. Disposition. I think at this point, if the patient is much more stable on Tuesday, we will try to send him to a rehab facility. cc: Servando Garcia MD [facility]
[2019-09-16 09:08] LABS: AGAP 10; ALBUMIN 3.4 g/dL (3.5-5.0); BUN 22 mg/dL (8-22); CALCIUM 8.9 mg/dL (8.8-10.2); CHLORIDE 103 mmol/L (98-107); COSMO 289; CREATININE 0.6 mg/dL (0.7-1.2); ESTIMATED GFR > 60; GLUCOSE 110 mg/dL (70-104); PHOSPHORUS 3.4 mg/dL (2.7-4.5); POTASSIUM 3.3 mmol/L (3.5-5.1); SODIUM 143 mmol/L (136-145); TCO2 30 mmol/L (25-35)
[2019-09-16] MEDS: MORPHINE IV PRN ×2 (12:02→19:19)
[2019-09-16] MEDS: ANTIVERT PO SCH (20:16)
[2019-09-16] MEDS: TENORMIN PO SCH (20:16)
[2019-09-16] MEDS: REQUIP PO SCH (20:16)
[2019-09-16] MEDS: ZOCOR PO SCH (20:16)
[2019-09-17] MEDS: MORPHINE IV PRN ×5 (03:00→20:40)
[2019-09-17] MEDS: PRILOSEC PO SCH (06:43)
--- NOTE | 2019-09-17 07:28 | Diag Imaging Result Doc PS360 ---
EXAM: CHEST-PORTABLE INDICATION: pulmonary edema TECHNIQUE: One view COMPARISON: 09/14/2019 FINDINGS: The lungs are grossly clear. There is no discrete pleural fluid collection or pneumothorax. The cardiomediastinal silhouette and central vasculature are grossly unremarkable. IMPRESSION: No evidence of acute pathology by plain radiograph. Electronically signed by Fercho Sal 09/17/2019 7:26 AM
--- NOTE | 2019-09-17 08:12 | PROGRESS NOTE ---
DATE: 09/17/2019 SUBJECTIVE: Patient remains to be nonverbal. No acute issues noted as per nursing staff overnight. OBJECTIVE: Vital Signs: Temperature 99.1 degrees, heart rate 54, respiratory rate 17, blood pressure 129/46, O2 saturation 95% on room air. General Examination: This is a 74-year-old chronically ill-appearing male lying in bed, in no acute distress. Cardiovascular: S1, S2 heard. No murmurs, gallops, or rubs. Regular rate and rhythm. Respiratory: Clear bilaterally to auscultation. Minimal crackles noted in both pulmonary bases but definitely much better in comparing with admission. Patient is not using any accessory muscles or having work of breathing. Abdomen: Soft. Nontender to palpation. Bowel sounds present. No organomegaly. Extremities: No clubbing, cyanosis, or edema. Peripheral pulses present in both legs. Neurological: Patient nonverbal. Apparently he has some sort of paraplegia, does not follow commands. LABORATORY DATA: Still pending at time of dictation. ASSESSMENT AND PLAN: 1. Acute hypoxemic respiratory failure. The patient has pulmonary edema at presentation. He received Lasix IV and now he is on home dosage of Lasix and apparently he is doing fine, requiring only 2 L of oxygen by nasal cannula. We are going to repeat an x-ray today. We will see what it shows. 2. Nephrolithiasis. The patient will not need to have any procedure done as an inpatient. 3. Hypokalemia. The potassium from yesterday was 3.3. 4. Disposition: I think this patient is much more stable. Patient has been evaluated by PT and they recommend inpatient rehab. Will inform social work program coordinator about it and will follow recommendations. cc: Servando Garcia MD
[2019-09-17 08:22] LABS: BASO# 0.02 X1000 (0.0-0.2); BASO% 0.3 % (0.0-0.8); EOS% 3.3 % (0.0-10.0); HEMATOCRIT 41.1 % (42.0-52.0); HEMOGLOBIN 13.2 g/dL (14.0-18.0); LYMPH# 1.51 X1000 (1.2-3.4); LYMPH% 24.8 % (20.5-51.1); MCH 28.7 PG (27-31); MCHC 32.1 g/dL (33-37); MCV 89.3 FL (81-99); MONO# 0.64 X1000 (0.11-0.59); MONO% 10.5 % (1.7-9.3); MPV 13.5 FL (7.4-10.4); NEUT# 3.71 X1000 (1.4-6.5); NEUT% 61.1 % (42.2-75.2); PLT 133 X1000 (130-400); RDW 13.9 % (11.5-14.5); WBC 6.08 X1000 (4.8-10.8)
[2019-09-17 09:01] LABS: AGAP 12; ALBUMIN 3.4 g/dL (3.5-5.0); BUN 19 mg/dL (8-22); CALCIUM 8.8 mg/dL (8.8-10.2); CHLORIDE 103 mmol/L (98-107); COSMO 287; CREATININE 0.5 mg/dL (0.7-1.2); ESTIMATED GFR > 60; GLUCOSE 92 mg/dL (70-104); PHOSPHORUS 3.3 mg/dL (2.7-4.5); POTASSIUM 3.2 mmol/L (3.5-5.1); SODIUM 143 mmol/L (136-145); TCO2 28 mmol/L (25-35)
[2019-09-17] MEDS: REQUIP PO SCH (20:31)
[2019-09-17] MEDS: ANTIVERT PO SCH (20:31)
[2019-09-17] MEDS: ZOCOR PO SCH (20:32)
[2019-09-17] MEDS: TENORMIN PO SCH (20:32)
[2019-09-18] MEDS: MORPHINE IV PRN ×5 (04:40→22:05)
[2019-09-18] MEDS: PRILOSEC PO SCH (06:49)
[2019-09-18 08:48] LABS: BASO# 0.03 X1000 (0.0-0.2); BASO% 0.5 % (0.0-0.8); EOS# 0.17 X1000 (0.0-0.7); EOS% 2.8 % (0.0-10.0); HEMATOCRIT 41.8 % (42.0-52.0); HEMOGLOBIN 13.4 g/dL (14.0-18.0); LYMPH# 1.47 X1000 (1.2-3.4); LYMPH% 24.2 % (20.5-51.1); MCH 28.6 PG (27-31); MCHC 32.1 g/dL (33-37); MCV 89.3 FL (81-99); MONO# 0.72 X1000 (0.11-0.59); MONO% 11.9 % (1.7-9.3); MPV 13.8 FL (7.4-10.4); NEUT# 3.68 X1000 (1.4-6.5); NEUT% 60.6 % (42.2-75.2); PLT 144 X1000 (130-400); RBC 4.68 XMIL (4.7-6.1); RDW 13.8 % (11.5-14.5); WBC 6.07 X1000 (4.8-10.8)
[2019-09-18 09:44] LABS: AGAP 13; ALBUMIN 3.5 g/dL (3.5-5.0); BUN 20 mg/dL (8-22); CALCIUM 9.2 mg/dL (8.8-10.2); CHLORIDE 104 mmol/L (98-107); COSMO 287; CREATININE 0.6 mg/dL (0.7-1.2); ESTIMATED GFR > 60; GLUCOSE 95 mg/dL (70-104); PHOSPHORUS 3.4 mg/dL (2.7-4.5); POTASSIUM 3.4 mmol/L (3.5-5.1); SODIUM 143 mmol/L (136-145); TCO2 26 mmol/L (25-35)
[2019-09-18] MEDS ORDERED: KLOR-CON PO ONE (10:49)
--- NOTE | 2019-09-18 12:43 | PROGRESS NOTE ---
DATE: 09/18/2019 SUBJECTIVE: Patient continues to be nonverbal. No acute issues noted as per nursing staff overnight. OBJECTIVE: Vital Signs: Temperature 98.0 degrees, heart rate 51, respiratory rate 18, blood pressure 149/54, O2 saturation 100% on 2 L nasal cannula. General Examination: This is a 74-year- old, male, lying in bed, in no acute distress. Cardiovascular Examination: S1 and S2 heard. No murmurs, gallops, or rubs. Regular rate and rhythm. Respiratory Examination: Clear bilaterally to auscultation with minimal crackles noted in both pulmonary bases. Definitely much better in comparing with admission. Patient is not using any accessory muscles or having work of breathing. Abdomen: Soft, nontender to palpation. Bowel sounds present. Extremities: No clubbing, cyanosis, or edema. Neurological Examination: The patient is nonverbal. Patient apparently has some sort of paraplegia. Does not follow commands. Laboratory Data: White cell count is 6.07, hemoglobin 13.4, hematocrit 41.8, platelets 144,000. Potassium 3.4, creatinine 0.6. ASSESSMENT AND PLAN: 1. Acute hypoxemic respiratory failure secondary to volume overload. Patient is stable during the last couple of days. He has been receiving intravenous Lasix at presentation but now he is receiving home doses of Lasix. He is doing clinically fine. Does not look tachypneic. His x-ray from yesterday showed no evidence of acute pathology by plain radiograph so at this point, we will continue with the same management. 2. Nephrolithiasis, stable. Patient is not going to have any procedures done as an outpatient as per urology. 3. Hypokalemia, is almost back to normal. We will provide some potassium today. 4. Disposition. This patient is medically stable. The patient has been recommended by physical therapy to go to a rehab facility. At this point, we are awaiting for a rehab bed for him. cc: Servando Garcia MD
[2019-09-18] MEDS: ZOCOR PO SCH (22:06)
[2019-09-18] MEDS: REQUIP PO SCH (22:06)
[2019-09-18] MEDS: TENORMIN PO SCH (22:06)
[2019-09-18] MEDS: ANTIVERT PO SCH (22:06)
[2019-09-19] MEDS: PRILOSEC PO SCH (06:30)
[2019-09-19] MEDS: MORPHINE IV PRN ×2 (06:30→16:17)
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
[2019-09-19] MEDS: REQUIP PO SCH (20:03)
[2019-09-19] MEDS: ZOCOR PO SCH (20:04)
[2019-09-19] MEDS: TENORMIN PO SCH (20:04)
[2019-09-19] MEDS: TYLENOL PO PRN (20:04)
[2019-09-19] MEDS: ANTIVERT PO SCH (20:04)
[2019-09-19 20:15] VITALS: BP 146/59
== END 2019-09-19 21:22 | DRG 640 ==
LOC: ED 20:25 → EDIPHOLD 09-13 03:12 → SUATTDRO 09-13 03:12 → 3N 09-13 17:17
PROVIDERS: ATTEND Internal Medicine